=== PATIENT | male | born 1955 | race African-American/Black ===

== ENCOUNTER 2017-01-27 11:59 | Emergency (ER) | payer SELFPAY ==
--- NOTE | ~2017-01-27 | CR72 ---
[facility] A Service of [facility] & [facility] RADIOLOGY TEXT RESULTS PATIENT: GRIFFIN GREENFIELD LOCATION: [facility] : 57 UNIT #: [id number] AGE: [address]: Yaa Del Rosario MD SEX: M ORDER DR: [id number] [facility] [address] [place], [place] [address] [id number] E MR#: [id number] Acc #: [id number] NAME: GRIFFIN GREENFIELD : 1955 SEX: M STUDY DATE/TIME: 01/27/2017 11:52 UNIT: [facility] ROOM: STUDY DESCRIPTION: CR Chest Single View Portable Attending Physician: Yaa Del Rosario M.D. Ordering Physician: Yaa Del Rosario M.D. Primary Care Physician: No Primary Care Physician MEDICAL IMAGING REPORT This report is preliminary unless electronic signature is present EXAM AP portable chest, 01/27/2017. HISTORY 61-year-old male with chest pain today. COMPARISON None FINDINGS A single AP portable view of the chest shows both lungs to be clear. The heart is normal in size. The mediastinal contour is normal. No significant bone abnormalities are seen. IMPRESSION Normal portable chest. Dictated by... Coby Fleming M.D. THIS IS AN ELECTRONICALLY VERIFIED REPORT Coby Fleming M.D. at 01/30/2017 8:37 AM PIEDAD/josephine TD: 01/27/2017 15:46 JOB #: [id number] MEDICAL IMAGING REPORT Page 1 of 1 COPY
--- NOTE | ~2017-01-27 | EKG ---
PATIENT: GRIFFIN GREENFIELD UNIT #: [id number] Ventricular Rate: 65 BPM Atrial Rate: 65 BPM P-R Interval: 144 ms QRS Duration: 72 ms Q-T Interval: 408 ms QTC Calculation(Bezet): 424 ms P [place]: 32 degrees Calculated R [place]: -18 degrees Calculated T [place]: 8 degrees Diagnosis Line: Normal sinus rhythm Diagnosis Line: Normal ECG Diagnosis Line: No previous ECGs available Diagnosis Line: Confirmed by OUMAR ETIENNE MD ([id number]) on Diagnosis Line: 01/28/2017 4:51:02 PM INTERPRETING MD: KAREN
[2017-01-27 11:22] LABS: POC - CKMB <1.0 ng/mL (0.0-7.9); POC - TROPONIN <0.05 ng/mL (<=0.05)
[2017-01-27 12:38] LABS: URINE SOURCE CLEAN CATCH
[2017-01-27 12:40] LABS: BASOPHIL% 0.2 % (0-2.5); EOSINOPHIL# 0.3 X10e3 (0-0.7); EOSINOPHIL% 3.4 % (0.0-7.0); HEMATOCRIT 44.7 % (38.0-50.0); HEMOGLOBIN 14.2 gm/dL (13.0-16.0); LYMPHOCYTE% 25.6 % (17.0-45.0); MEAN CORPUSCULAR HEMOGLOBIN 26.3 PG (28-34); MEAN CORPUSCULAR HGB CONC 31.7 g/dL (30-36); MEAN PLATELET VOLUME 9.1 FL (6.5-11.5); MONOCYTE# 0.8 X10e3 (0-1.0); MONOCYTE% 9.6 % (3.0-12.0); NEUTROPHIL# 4.9 X10e3 (1.5-7.1); NEUTROPHIL% 61.2 % (40-75); PLATELET COUNT 198 X10e3 (140-420); RED BLOOD COUNT 5.39 X10e (3.90-5.60)
[2017-01-27 12:47] LABS: DIFF IND NO
[2017-01-27 12:50] LABS: PROTHROMBIN TIME (PATIENT) 10.2 SECONDS (9.6-11.5)
[2017-01-27 13:08] LABS: POC - CKMB <1.0 ng/mL (0.0-7.9); POC - TROPONIN <0.05 ng/mL (<=0.05)
[2017-01-27 13:09] LABS: URINE APPEARANCE CLEAR; URINE BILIRUBIN NEG (NEG); URINE BLOOD NEG (NEG); URINE COLOR YELLOW; URINE GLUCOSE NEG (NEG); URINE KETONE NEG (NEG); URINE LEUKOCYTE ESTERASE NEG (NEG); URINE NITRATE NEG (NEG); URINE PH 7.5 (5-8); URINE PROTEIN NEG (NEG); URINE UROBILINOGEN 0.2 MG/DL (NEG)
[2017-01-27 13:24] LABS: BUN/CREATININE RATIO 14.54; CALCIUM SERUM 9.4 mg/dL (8.4-10.2); CREATININE SERUM 1.1 mg/dL (0.6-1.4); GLOM FILT RATE Estimated 84.1 mL/min (>60); POTASSIUM 4.7 mmol/L (3.5-5.1)
[2017-01-27 13:25] LABS: BILIRUBIN, DIRECT 0.1 mg/dL (0.0-0.2); BILIRUBIN,INDIRECT 0.3 mg/dL (0.0-0.9); BILIRUBIN,TOTAL 0.4 mg/dL (0.2-2.0); PROTEIN TOTAL SERUM 7.4 g/dL (6.0-8.3)
[2017-01-27 13:52] LABS: CULTURE INDICATED? NO
== END 2017-01-27 15:10 | disposition home or self-care (01) ==
LOC: CED 11:59
PROVIDERS: Emergency Medicine
DX: R07.9 Chest pain, unspecified (principal); R10.9 Unspecified abdominal pain; R53.81 Other malaise; M25.50 Pain in unspecified joint; Z98.890 Other specified postprocedural states
CPT/HCPCS: 36415; 71010; 80048; 80076; 81003; 82550; 82553; 83880; 84484; 85025; 85379; 85610; 85730; 87207; 93005; 99284